=== PATIENT | female | born 1960 | race African-American/Black ===

== ENCOUNTER 2022-03-05 18:13 | Emergency (ER) | payer BC ==
[~2022-03-05] VITALS: Ht 170.2 cm; Wt 76.7 kg
[2022-03-05] MEDS ORDERED: BEBTELOVIMAB 175 MG INJ IV ONE (19:30)
[2022-03-05] MEDS ORDERED: ONDANSETRON ODT4 MG PO (19:32)
[2022-03-05] MEDS ORDERED: ONDANSETRON HCL 4 MG ORAL DISINTEGRATING TAB ONE (19:44)
[2022-03-05] MEDS ORDERED: ONDANSETRON HCL 4 MG ORAL DISINTEGRATING TAB PO ONE (19:45)
== END 2022-03-05 19:55 | disposition home or self-care (01) ==
LOC: ER 18:16
DX: U07.1 COVID-19 (principal); R05.9 Cough, unspecified; E11.9 Type 2 diabetes mellitus without complications; R94.31 Abnormal electrocardiogram [ECG] [EKG]
CPT/HCPCS: 71046; 93005; 99283; Q0162; U0002